=== PATIENT | female | born 1995 | race Caucasian/White ===

== ENCOUNTER 2021-05-12 00:37 | Inpatient (IN) | payer MEDICAID ==
[2021-05-12] MEDS ORDERED: Terbutaline 1 MG/ML SDV SUBCUT PRN (01:10)
[2021-05-12] MEDS ORDERED: Lidocaine 1% 50 ML MDV INJECT PRN (01:10)
[2021-05-12] MEDS ORDERED: Ondansetron 4 MG/2 ML SDV IVPUSH PRN (01:10)
[2021-05-12] MEDS ORDERED: Water For Irrigation,Sterile 1,000 ML Container IRR PRN (01:10)
[2021-05-12] MEDS ORDERED: Misoprostol 25 MCG (1/4 of 100 MCG) Tab VAG PRN ×2 (01:10)
[2021-05-12] MEDS ORDERED: Methylergonovine 0.2 MG/1 ML Amp IM PRN (01:10)
[2021-05-12] MEDS ORDERED: Carboprost Tromethamine 250 MCG/1 ML Amp IM PRN (01:10)
[2021-05-12] MEDS ORDERED: Tranexamic Acid 1,000 MG in Sodium Chloride 0.9% 100 ML IV PRN (01:10)
[2021-05-12] MEDS ORDERED: Misoprostol 200 MCG Tab PO PRN (01:10)
[2021-05-12] MEDS ORDERED: Butorphanol 1 MG/ML SDV IVPUSH PRN (01:10)
[2021-05-12] MEDS ORDERED: Sodium Chloride 0.9% 10 ML Syringe FLUSH PRN (01:10)
[2021-05-12] MEDS ORDERED: Sodium Chloride 0.9% 20 ML SDV IV PRN (01:10)
[2021-05-12] MEDS ORDERED: Nalbuphine 10 MG/1 ML Vial IVPUSH PRN (01:10)
[2021-05-12] MEDS ORDERED: Oxytocin/0.9 % Sodium Chloride 30 UNIT/500 ML BAG IV SCH ×2 (01:15)
[2021-05-12] MEDS ORDERED: Misoprostol 25 MCG (1/4 of 100 MCG) Tab PO ONE (01:19)
[2021-05-12] MEDS ORDERED: Misoprostol 25 MCG (1/4 of 100 MCG) Tab PO PRN (01:20)
[2021-05-12] MEDS: Lactated Ringers 1,000 ML IV SCH ×4 (04:45→14:23)
[2021-05-12] MEDS ORDERED: Ropivacaine HCl/PF 100 ML ONE (08:55)
[2021-05-12] MEDS ORDERED: ePHEDrine 50 MG/ML SDV IVPUSH PRN (12:11)
[2021-05-12] MEDS ORDERED: Ropivacaine HCl/PF 200 MG in Premix Bag 1 BAG EPIDUR SCH (12:15)
[2021-05-12] MEDS ORDERED: Acetaminophen 500 MG Tab PO PRN (18:54)
[2021-05-12] MEDS ORDERED: Ibuprofen 400 MG Tab PO PRN (18:54)
[2021-05-12] MEDS ORDERED: Benzocaine/Menthol 20%-0.5% Spray 78 GM Cannister TOP PRN (18:54)
[2021-05-12] MEDS ORDERED: Lanolin 100% Cream 7 GM Tube TOP PRN (18:54)
[2021-05-12] MEDS ORDERED: Witch Hazel Medicated Pads 40/Jar TOP PRN (18:54)
[2021-05-12] MEDS ORDERED: Bisacodyl 10 MG Supp RECTAL PRN (18:54)
[2021-05-12] MEDS: Docusate Sodium 100 MG Cap PO PRN (19:17)
[2021-05-12] MEDS: Ibuprofen 800 MG Tab PO PRN (19:17)
[2021-05-12] MEDS: Acetaminophen 500 MG Tab PO PRN (21:46)
[2021-05-12] MEDS ORDERED: oxyCODONE 5 MG Tab PO ONE (22:50)
[2021-05-13] MEDS: Ibuprofen 800 MG Tab PO PRN ×3 (04:10→21:01)
[2021-05-13] MEDS: Acetaminophen 500 MG Tab PO PRN ×2 (08:16→16:54)
[2021-05-13] MEDS: Docusate Sodium 100 MG Cap PO PRN (08:16)
[2021-05-14] MEDS: Ibuprofen 800 MG Tab PO PRN (07:33)
== END 2021-05-14 13:30 | disposition home or self-care (01) | DRG 807 ==
LOC: MW.OBCHECK 00:37 → MW.OB 00:39 → MW.OBCHECK 01:10 → OBSVTOIN 18:54 → MW.OB 22:12
PROVIDERS: ADMIT Obstetrics & Gynecology Obstetrics; ATTEND Obstetrics & Gynecology Obstetrics
PROC: 10E0XZZ Delivery of Products of Conception, External Approach (ICD-10-PCS; principal; 2021-05-12)
PROC: 3E0P7VZ Introduction of Hormone into Female Reproductive, Via Natural or Artificial Opening (ICD-10-PCS; 2021-05-12)
PROC: 3E0R3BZ Introduction of Anesthetic Agent into Spinal Canal, Percutaneous Approach (ICD-10-PCS; 2021-05-12)
PROC: 00HU33Z Insertion of Infusion Device into Spinal Canal, Percutaneous Approach (ICD-10-PCS; 2021-05-12)
DX: O80 Encounter for full-term uncomplicated delivery (principal); Z37.0 Single live birth; Z3A.39 39 weeks gestation of pregnancy
CPT/HCPCS: 01967; 36415; 51702; 59025; 59409; 85014; 85018; 85027; 86592; 86850; 86900; 86901; A9270-GY; J2590; J2795; J7120